=== PATIENT | female | born 1995 | race Caucasian/White ===

== ENCOUNTER 2019-06-09 23:11 | Inpatient (IN) | payer OTHER ==
[~2019-06-09] VITALS: Ht 160 cm; Wt 108.9 kg
[2019-06-09 23:11] VITALS: BP 121/81
--- NOTE | 2019-06-09 23:11 | NUR ---
SANTOS ALS TO ER BED 6
[2019-06-09] MEDS ORDERED: NACL 0.9% 1,000 ML IV ONE (23:20)
--- NOTE | 2019-06-09 23:20 | NUR ---
23 YO F SANTOS FROM HOME FOR OD ATTEMPT/SI. PER EMS, PT FOUND UNCONSCIOUS BY FAMILY MEMBER SURROUNDED BY SEVERAL EMPTY RX BOTTLES AND UNKNOWN ALCOHOL. IT IS UNKNOWN HOW MUCH OR WHAT KIND OF ALCOHOL PT DRANK, BUT EMS ESTIMATED 4 SHOTS WORTH. FAMILY MEMBER TOLD EMS THAT PT HAS HX OF DEPRESSION AND WAS PLACED ON 5150 HOLD X 4 DAYS AGO AFTER TRYING TO SLIT HER WRISTS. RX BOTTLES FOUND WITH PT INCLUDE: TRAZODONE 50 MG, SULFAMETH/TRIMETH 400-80 MG, IBUPROFEN 600MG, VIT. D3 10,000 UNITS, AND HYDROXYZINE PAMOATE 50MG. UNKNOWN AMOUNT INGESTED. PT ARRIVES OBTUNDED, AROUSABLE TO STERNAL RUB. A/O X 0. GCS 10. PT PUSHES AWAY WHEN TRYING TO CHECK PUPILS. PUPILS PERRL @ 5. NO VISIBLE TRAUMA NOTED TO BODY. [facility]-- DEPRESSION, MULTIPLE SUICIDE ATTEMPTS Addendum: 06/10/19 at 0533 by [facility] NAVID RODRIGUEZ PRESENT TO WRITE 5150 HOLD FOR DANGER TO SELF.
--- NOTE | 2019-06-09 23:20 | NUR ---
SI PRECAUTIONS IMPLEMENTED. ROOM PREPARED FOR SI SAFETY.
--- NOTE | 2019-06-09 23:30 | NUR ---
# 16 FR straight catheter utilizing sterile technique. Immediate return of 700 ml clear, yellow urine noted. Urine sample collected and sent to lab. Pt tolerated procedure well.
--- NOTE | 2019-06-09 23:35 | NUR ---
SPOKE WITH ERIN, POISON CONTROL. 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 DR. DIANE INFORMED OF THESE SUGGESTIONS.
--- NOTE | 2019-06-09 23:40 | NUR ---
PT PUSHING AWAY AND SAYING "NO" WHILE EMT TRYING TO PERFORM EKG. PRIMARY NURSE ACCOMPANIED FOR ASSIST.
[2019-06-09 23:48] LABS: BASOPHILS # (AUTO) 0.1 K/uL (0.00-0.22); BASOPHILS % (AUTO) 1.4 % (0.0-2.0); EOSINOPHILS % (AUTO) 0.9 % (0.0-4.0); HEMATOCRIT 41.9 % (36-48); HEMOGLOBIN 13.5 g/dL (12.0-16.0); LYMPHOCYTES # (AUTO) 2.9 K/uL (2.5-16.5); LYMPHOCYTES % (AUTO) 57.4 % (20.5-51.1); MEAN CORPUSCULAR HEMOGLOBIN 30 pg (27-31); MEAN CORPUSCULAR HGB CONC 32 g/dL (33-37); MEAN CORPUSCULAR VOLUME 94.3 fL (80-94); MONOCYTES # (AUTO) 0.5 K/uL (0.8-1.0); MONOCYTES % (AUTO) 10.1 % (1.7-9.3); NEUTROPHILS # (AUTO) 1.5 K/uL (1.8-7.7); NEUTROPHILS % (AUTO) 30.2 % (42.2-75.2); PLATELET COUNT (AUTO) 365 K/uL (140-450); RED BLOOD CELL COUNT(AUTO) 4.44 MIL/uL (4.20-5.40); RED CELL DISTRIBUTION WIDTH 16.9 % (11.6-13.7)
--- NOTE | 2019-06-09 23:51 | NUR ---
EKG PERFORMED AT BEDSIDE WITH PRIMARY RN PRESENT
[2019-06-10 00:02] LABS: ALBUMIN 3.6 g/dL (3.4-5.0); ANION GAP 14.2 (8-16); ASPARTATE AMINOTRANSFERASE 436 U/L (15-37); CARBON DIOXIDE 27.2 mmol/L (21-32); CHLORIDE 108 mmol/L (98-107); CREATININE 0.8 mg/dL (0.6-1.3); GFR ARICAN-AMERICAN 113 mL/min (>90); GLUCOSE 108 mg/dL (74-106); POTASSIUM 3.4 mmol/L (3.5-5.1); SODIUM SERUM 146 mmol/L (136-145); TOTAL BILIRUBIN 0.4 mg/dL (0.0-1.0); UREA NITROGEN, BLOOD 7 mg/dL (7-18)
--- NOTE | 2019-06-10 00:05 | NUR ---
SPO2 DROPPING TO 89%. PT HAS SHALLOW RESPIRATIONS. SKIN PINK, WARM, DRY. PT PLACED ON 4 LPM VIA NC TO MAINTAIN SPO2 >94%. SPO2 100% ON 4 LPM O2.
[2019-06-10 00:09] LABS: SALICYLATE < 2.8 mg/dL (2.8-20.0)
[2019-06-10 00:10] LABS: ACETAMINOPHEN < 0.5 ug/ml (10-30)
--- NOTE | 2019-06-10 00:11 | NUR ---
LAB CALLED FOR CRITICAL: BLOOD ALCOHOL LEVEL IS 573. LUCI DIANE AWARE.
--- NOTE | 2019-06-10 01:16 | NUR ---
RESTING DEEPLY WITH EYES CLOSED. AROUSABLE TO PAINFUL STIMULI. VSS ARE WNL AND STABLE. Addendum: 06/10/19 at 0217 by [facility] SITTER AT BEDSIDE.
[2019-06-10 01:26] LABS: BARBITURATE, URINE NEG. ng/ml (NEG <=200); BENZODIAZEPINE, URINE NEG. ng/mL (NEG <=200); CANNABINOID, URINE NEG. ng/mL (NEG <=50); COCAINE, URINE NEG. ng/mL (NEG <=300); OPIATE, URINE NEG. ng/mL (NEG <=2000); PHENCYCLIDINE SCREEN,URINE NEG. ng/mL (NEG <=25)
[2019-06-10] MEDS ORDERED: ONDANSETRON 4 MG/2 ML VIAL IVP PRN (01:55)
[2019-06-10] MEDS ORDERED: ACETAMINOPHEN 325 MG TAB PO PRN (01:55)
--- NOTE | 2019-06-10 02:14 | NUR ---
RESTING WITH EYES CLOSED. VSS. AROUSABLE TO PAINFUL STIMULI. REMAINS OBTUNDED. A/O X 0. Addendum: 06/10/19 at 0215 by [facility] SITTER SITTING NEARBY.
[2019-06-10 02:35] VITALS: BP 105/66
--- NOTE | 2019-06-10 02:35 | NUR ---
REPORT RECEIVED FROM ED NURSE AT BEDSIDE. PT IN STABLE CONDITION. AAOX0. INTRODUCED SELF TO PT. FLACC 0. NO SOB. AFEBRILE. PT IS AMBULATORY BUT IS ON BEDREST. PT IS 1:1 SITTER 5150 HOLD. IV SITE L AC 18G RUNNING BOLUS OF NS. WILL RUN D5 1/2NS@100ML/HR PATENT AND INTACT. SKIN WARM, DRY, AND INTACT WITH NO OPEN WOUNDS. BED LOCKED IN LOW POSITION. SAFETY PRECAUTION IN PLACE. SEIZURE PRECAUTION IN PLACE. ALL NEEDS MET AT THIS TIME. MRSA SWAB TAKEN.
--- NOTE | 2019-06-10 02:42 | NUR ---
Patient will be admitted to care of Dr. Lopez. Admited to tele. Will go to room 109B. Belongings list completed. Report to ROE Souza.
[2019-06-10] MEDS: DEXT 5% / NACL 0.45% 1,000 ML IV SCH ×3 (03:06→21:55)
[2019-06-10] MEDS ORDERED: MOT200 PO (03:07)
[2019-06-10] MEDS ORDERED: SULF-58 PO (03:07)
[2019-06-10] MEDS ORDERED: HYDR25CA1 PO (03:07)
[2019-06-10] MEDS ORDERED: TRAZ-343 PO (03:07)
[2019-06-10] MEDS ORDERED: CALC-1030 PO (03:07)
--- NOTE | 2019-06-10 04:00 | NUR ---
PT SLEEPING COMFORTABLY BUT AROUSABLE. NO S/S OF DISTRESS NOTED. WILL CONTINUE TO MONITOR.
--- NOTE | 2019-06-10 05:45 | NUR ---
PT SLEEPING COMFORTABLY BUT AROUSABLE. BP DECREASED BUT IN STABLE CONDITION. WILL CONTINUE TO MONITOR.
--- NOTE | 2019-06-10 06:50 | NUR ---
PT SLEEPING COMFORTABLY BUT AROUSABLE. PT BP DECREASED BUT IN STABLE CONDITION.
--- NOTE | 2019-06-10 07:15 | NUR ---
RECEIVED REPORT FROM READERS' ADVISORY SERVICE LIBRARIAN NURSE MIN FOR CONTINUITY OF CARE. PT IN STABLE CONDITION. RESPIRATIONS EVEN AND UNLABORED. IV INTACT AND PATENT. SAFETY MEASURES IN PLACE. BED IN LOW POSITION. BED ALARM ON. CALL LIGHT AT BEDSIDE. WILL CONTINUE TO MONITOR.
[2019-06-10 08:00] VITALS: BP 94/54
--- NOTE | 2019-06-10 09:11 | NUR ---
DC PLANNIN YRS OLD FEMALE PATIENT CAME FROM HOME WITH A DX OF 5151 HOLD FOR SUICIDAL DRUG OVERDOSE. PT HAS A HX OF ANXIETY AND DEPRESSION, PER FAMILY THE FOUND 5 EMPTY BOTTLES OF PILLS CONTAINER . ALCOHOL LEVEL 573 , EKG SHOWED PROLONGED QT INTERVAL TREATED WITH IVF , NEEDS TELE MONITORING, NEURO CHECK. ORDERED PSYCH CONSULT. DC PLANING WHEN MEDICALLY CLEAR AND PSYCH DR EVALUATION . Addendum: 06/10/19 at 1531 by Kady Covarrubias CM CONTACTED [facility] AT [phone], ABLE TO SPEAK TO [facility]. SHE STATED THEY ARE NOT AWARE OF THIS HOLD. CHARGE NURSE MADE AWARE AND INFORM TO FAX 8260 HOLD TO [phone]. Addendum: 06/12/19 at 1156 by Shanae Cruz CM DC PLANNING RECEIVED A CALL FROM DR CONTRERAS STATED PT IS MEDICALLY CLEAR AND TOLD HIM THAT SHE IS FINE AND WANTED TO GO HOME. CONTACTED DR INFANTE PSYCH DR NOTIFIED HIME DR CONTRERAS'S SUGGESTION PER DR INFANTE SHE IS QUITE TROUBLED AND OVERDOSE ON A LOTS OF MEDICINE AND IT WILL BE RISKY DISCHARGE.[facility]ED [facility] [phone] SPOKE WITH MILAGROS SHE WILL FAX INQUIRES TO THE PSYCH FACILITY. CM TO FOLLOW
--- NOTE | 2019-06-10 09:33 | NUR ---
PT SLEEPING AT THIS TIME. RESPIRATIONS EVEN AND UNLABORED. EASILY TO AROUSED. BED IN LOW POSITION. SITTER 1:1 AT BEDSIDE. WILL CONTINUE TO MONITOR.
--- NOTE | 2019-06-10 10:24 | NUR ---
PATIENT HAS BEEN SCREENED AND CATEGORIZED LOW NUTRITION RISK. PATIENT WILL BE SEEN WITHIN 7 DAYS OF ADMISSION. 11/13/[address]
--- NOTE | 2019-06-10 11:12 | NUR ---
YEYO CALLED FROM POISON CONTROL FOR UPDATE ON PT STATUS. ALL QUESTIONS ANSWERED AT THIS TIME.
[2019-06-10 12:00] VITALS: BP 98/56
--- NOTE | 2019-06-10 12:34 | NUR ---
CLAY ORDERED IVF AT THIS TIME. PT AWAKE AND ALERT. BED IN LOW POSITION. SITTER 1:1 AT BEDSIDE. WILL CONTINUE TO MONITOR.
--- NOTE | 2019-06-10 14:15 | NUR ---
CONTACTED DR. INFANTE TO FOLLOW UP WITH THE CONSULT. PER DR. INFANTE, HE WILL COME TO SEE PT TODAY. LEANN ASSIGNED MADE AWARE.
--- NOTE | 2019-06-10 14:45 | NUR ---
PT SLEEPING AT THIS TIME. RESPIRATIONS EVEN AND UNLABORED. EASILY TO AROUSED. BED IN LOW POSITION. SITTER 1:1 AT BEDSIDE. WILL CONTINUE TO MONITOR.
--- NOTE | 2019-06-10 16:00 | NUR ---
PT'S 4413 FORM AND FACE SHEET REFAXED TO [facility] REQUEST[facility] BY CASE MANAGEMENT (FAX#: [phone]). CONFIRMATION ATTACHED TO PT'S CHART.
--- NOTE | 2019-06-10 16:23 | NUR ---
Called the following Facilities; [facility], no beds [facility]er fax for review
--- NOTE | 2019-06-10 16:29 | NUR ---
Awaiting medical clearance before placement for inpatient psych
--- NOTE | 2019-06-10 16:38 | NUR ---
CLOTHING WORKER assessment/discharge plan High Risk DC Screen Yes Name: Abbey Espinoza Home Relationship: mother Pre-Admission Living Arrangements: Lives with Other Other: aunt: Salud Prior ADL Independent Current Home Health Name/Tel: N/A Current DME/02 Name/Tel: N/A Current Hospice Name/Tel: N/A Current Dialysis Name/Tel: N/A Healthcare Decision Maker: Patient Advance Directive No Tentative Discharge Plan Summary: Patient is a 23 year old female admitted for 51/50 drug overdose. I met with patient at bedside. Patient alert and oriented x4. Patient lives at home with her aunt Salud and plans to return home upon discharge. Patient does not recall name of her pcp. She stated pcp's office is located in [facility]. She has had depression and anxiety for 1 year. She has not received counseling/mental health services. She told me she has been taking medication for depression and anxiety (prescribed by psychiatrist). She explained to me it is difficult for her to discuss her hx of mental health. I encouraged her to consider finding a mental health professional who she feels comfortable with. She verbalized understanding. She does not want community resources at this time. She is aware there is a possibility she will be transferred to a hospital with psychiatric unit, if she is not cleared by psychiatrist. She does not have any questions/concerns at this time.Advertising Strategist and/or Physician Surgeon will follow up as needed. Signature: BRIAN Szymanski Date: Jun 10, 2019
--- NOTE | 2019-06-10 16:50 | NUR ---
PT LAYING IN BED QUIETLY. RESPIRATIONS EVEN AND UNLABORED. BED IN LOW POSITION. SITTER 1:1 AT BEDSIDE. WILL CONTINUE TO MONITOR.
[2019-06-10] MEDS: chlordiazePOXIDE 25 MG CAP PO SCH (17:42)
--- NOTE | 2019-06-10 19:01 | NUR ---
GAVE REPORT TO SUPERVISOR COLD ROLLING NURSE DENISE FOR CONTINUITY OF CARE. PT IN STABLE CONDITION.
--- NOTE | 2019-06-10 19:02 | NUR ---
RECD. SITTING IN BED, CONVERSING WITH AUNT. SEEMS A LITTLE NERVOUS. RESPIRATION EVEN AND UNLABORED. IV OF D51/2 NS AT 100 ML/HR INFUSING, LEFT AC G18. WHEN INQUIRED IF SHE HAS THOUGHTS OF HURTING SELF, STATED NONE. PLAN OF CARE FOR THE SHIFT DISCUSSED. NODS HEAD IN UNDERSTANDING. DENIES PAIN 0/10.
--- NOTE | 2019-06-10 19:30 | NUR ---
DINNER MEAL TRAY STILL LEFT UNTOUCHED. REMINDED TO EAT, FOOD CAN BE WARM IF SHE WANTS. STATED I STILL FEEL NAUSEOUS. ICE CHIPS GIVEN.
[2019-06-10 20:00] VITALS: BP 149/90
--- NOTE | 2019-06-10 20:00 | NUR ---
AMBULATED TO TO VOID, HOSPITAL UNDERWEAR GIVEN REQUESTED.
--- NOTE | 2019-06-10 20:00 | NUR ---
Patient's Plan of Care was discussed and reviewed with AIR CREW SUPERVISOR: DENISE FRANCO LVN
--- NOTE | 2019-06-10 20:30 | NUR ---
LAYING BED AWAKE BUT QUIET.
--- NOTE | 2019-06-10 21:00 | NUR ---
OFFERED CROSSWORD PUZZLE AND SOME MAGAZINES TO READ.
--- NOTE | 2019-06-10 21:30 | NUR ---
LAYING IN BED TRYING TO SLEEP, REMINDED TO EAT DINNER, AGREED.
--- NOTE | 2019-06-10 22:00 | NUR ---
NO APPETITE TO EAT, ATE ONLY 10%.
[2019-06-10] MEDS: LORazepam 1 MG TAB PO PRN (22:26)
--- NOTE | 2019-06-10 22:26 | NUR ---
WITH ANXIETY, UNABLE TO SLEEP, MEDICATED WITH ATIVAN 1 MG PO.
--- NOTE | 2019-06-10 23:00 | NUR ---
STILL AWAKE IN BED, LOOKING AT HER CELLPHONE.
--- NOTE | 2019-06-10 23:20 | NUR ---
SLEEPING COMFORTABLY IN BED.
[2019-06-11] VITALS: BP 134/91
[2019-06-11] MEDS: DEXT 5% / NACL 0.45% 1,000 ML IV SCH ×3 (00:32→17:55)
--- NOTE | 2019-06-11 01:23 | NUR ---
SLEEPING SOUNDLY, SNORING IN BED.
--- NOTE | 2019-06-11 02:45 | NUR ---
WOKE UP, AMBULATED TO BR TO VOID. BACK TO BED AFTER VOIDING AND WENT BACK TO SLEEP.
[2019-06-11 04:00] VITALS: BP 129/87
--- NOTE | 2019-06-11 04:00 | NUR ---
RESTING IN BED COMFORTABLY, VS STABLE.
--- NOTE | 2019-06-11 05:40 | NUR ---
WOKE UP, AMBULATED TO THE BR. BACK TO BED AFTER VOIDING.
--- NOTE | 2019-06-11 06:06 | NUR ---
STILL SLEEPING COMFORTABLY IN BED. NEW SITTER MONITORING PATIENT NEAR DOOR.
[2019-06-11 06:20] LABS: BASOPHILS # (AUTO) 0.1 K/uL (0.00-0.22); BASOPHILS % (AUTO) 1.3 % (0.0-2.0); EOSINOPHILS # (AUTO) 0.1 K/uL (0-0.4); EOSINOPHILS % (AUTO) 2.7 % (0.0-4.0); HEMATOCRIT 36.5 % (36-48); HEMOGLOBIN 12.1 g/dL (12.0-16.0); LYMPHOCYTES % (AUTO) 40.7 % (20.5-51.1); MEAN CORPUSCULAR HEMOGLOBIN 31 pg (27-31); MEAN CORPUSCULAR HGB CONC 33 g/dL (33-37); MEAN CORPUSCULAR VOLUME 93.6 fL (80-94); MONOCYTES # (AUTO) 0.5 K/uL (0.8-1.0); MONOCYTES % (AUTO) 10.6 % (1.7-9.3); NEUTROPHILS # (AUTO) 2.1 K/uL (1.8-7.7); NEUTROPHILS % (AUTO) 44.7 % (42.2-75.2); PLATELET COUNT (AUTO) 286 K/uL (140-450); RED CELL DISTRIBUTION WIDTH 16.2 % (11.6-13.7); WHITE BLOOD COUNT (AUTO) 4.8 K/uL (4.8-10.8)
--- NOTE | 2019-06-11 06:30 | NUR ---
CONDITION REMAIN STABLE. SAFETY MAINTAINED DURING SHIFT. 1:1 SITTER NEAR DOOR MONITORING PATIENT.
[2019-06-11 06:37] LABS: MAGNESIUM 1.4 mg/dL (1.8-2.4); PHOSPHORUS 4.1 mg/dL (2.5-4.9)
[2019-06-11 06:40] LABS: ALBUMIN 2.9 g/dL (3.4-5.0); ANION GAP 9.6 (8-16); CARBON DIOXIDE 27.9 mmol/L (21-32); CREATININE 0.6 mg/dL (0.6-1.3); POTASSIUM 3.5 mmol/L (3.5-5.1)
--- NOTE | 2019-06-11 07:25 | NUR ---
RECEIVED BEDSIDE SHIFT REPORT FROM PHYSICS DEPARTMENT CHAIR NURSE FOR CONTINUATION OF CARE. PATIENT REMAINS ON A 5150 HOLD FOR DANGER TO SELF WITH HX OF SUICIDE ATTEMPT. PATIENT REMAINS WITHDRAWN, AND SELECTIVELY MUTE, LAYING IN BED, POOR EYE CONTACT, LOW MOTIVATION. BED IS IN LOW POSITION, CALL LIGHT ON AND WITHIN REACH. WILL CONTINUE TO MONITOR.
[2019-06-11 08:00] VITALS: BP 121/78
[2019-06-11] MEDS: FOLIC ACID 1 MG TAB PO SCH (08:46)
[2019-06-11] MEDS: chlordiazePOXIDE 25 MG CAP PO SCH ×3 (08:47→17:24)
[2019-06-11] MEDS: THIAMINE 100 MG TAB PO SCH (08:47)
--- NOTE | 2019-06-11 09:30 | NUR ---
PATIENT RESTING IN BED, MEDICATIONS FOR ETOH DETOX ADMINISTERED, PATIENT REPORTS NO PAIN AT THIS TIME. 1:1 SITTER IS IN PATIENTS ROOM. WILL CONTINUE TO MONITOR.
--- NOTE | 2019-06-11 11:05 | NUR ---
RIGHT UPPER ARM, OLD HEALED TATTOO, NO OPEN ACTIVE WOUNDS, DRY THIN SCABS, NO ERYTHEMA, NO SWELLING.
--- NOTE | 2019-06-11 12:02 | NUR ---
PATIENT IS RESTING IN BED, 1:1 SITTER IN ROOM MONITORING FOR SAFETY. WILL CONTINUE TO MONITOR.
[2019-06-11] MEDS: HYDROcodone/APAP 5/325 MG 1 TAB TAB PO PRN ×2 (13:15→19:53)
[2019-06-11] MEDS ORDERED: LORA-476 PO (13:57)
[2019-06-11] MEDS ORDERED: MAGNESIUM OXIDE 400 MG TAB PO SCH (14:00)
--- NOTE | 2019-06-11 14:42 | NUR ---
ON 1:1 OBSERVATION FOR 5150 SUICIDE ATTEMPT. MAGNESIUM 1.4 REPORTED TO , ORDERED MAG OXIDE 800 MG PO ONE TIME DOSE. MEDICATION ADMINISTERED. TOLERATED WELL. MILD HAND TREMORS OBSERVED, ABSENT OF SWEATING, MILD ANXIETY REPORTED. PATIENT IS OCCUPYING HERSELF WITH A CROSSWORD PUZZLE. PATIENT VERBALIZES THAT SHE WANTS TO GET HELP FOR HER AND HER SON. DENIES SUICIDAL IDEATION AT THIS TIME. BED IN LOW POSITION, CALL LIGHT ON AND WITHIN REACH.
[2019-06-11 17:00] VITALS: BP 118/85
--- NOTE | 2019-06-11 17:20 | NUR ---
1:1 STATUS REMAINS DUE TO 5150 STATUS, NORCO GIVEN FOR CHEST PAIN. SITTER REMAINS IN THE ROOM. WILL CONTINUE TO MONITOR.
[2019-06-11] MEDS: LORazepam 1 MG TAB PO PRN (18:11)
--- NOTE | 2019-06-11 19:26 | NUR ---
RECEIVED REPORT FROM DAYSHIFT NURSE AISLINN AT BEDSIDE FOR CONTINUITY OF CARE , PT IN STABLE CONDITION.
--- NOTE | 2019-06-11 19:26 | NUR ---
REPORT GIVEN TO GEL COATER NURSE FOR CONTINUATION OF CARE.
[2019-06-11 20:00] VITALS: BP 125/88
--- NOTE | 2019-06-11 20:00 | NUR ---
PT IN BED IV SIT4E 18 GUAGE ON THE LEFT AC, INTACT AND FLUSHED PATENT RUNNING 100MLS OF D51/2 NS AT 100MLS/HR. PT AOX4 WITH SKIN INTACT AND AMBULATORY.PT C/O OF 5/10 PAIN IN CHEST FROM POST IN. PT GIVEN 1 TAB O\F NORCO. 1:1 SITTER AT BEDSIDE AND ALL FALLS PRECAUTIONS IN PLACE.
[2019-06-12] VITALS: BP 126/92
--- NOTE | 2019-06-12 | NUR ---
PT SITTING UP IN BED AWAKE NO S/S OF PAIN OR DISTRESS NOTED. 1:1 SITTER AT BEDSIDE. V/S STABLE AND UNCOMPLICATED.
--- NOTE | 2019-06-12 04:00 | NUR ---
PT IN BED FLUIDS RUNNING ORDERED. NO ADVERSE EFFECTS OF IV ABT NOTED. 1X1 SITTER AT BEDSIDE.
--- NOTE | 2019-06-12 06:30 | NUR ---
PT SITTING UP IN BED NO S/S OF PAIN OR DISTRESS NOTED. PT SKIN INTACT SHE TURNE IN BED HERSELF, 1 1 SITTER AT BEDSIDE.
[2019-06-12] MEDS: DEXT 5% / NACL 0.45% 1,000 ML IV SCH ×2 (06:31→17:00)
[2019-06-12] MEDS: HYDROcodone/APAP 5/325 MG 1 TAB TAB PO PRN ×3 (06:34→18:23)
[2019-06-12 07:03] LABS: BASOPHILS % (AUTO) 0.7 % (0.0-2.0); EOSINOPHILS # (AUTO) 0.1 K/uL (0-0.4); EOSINOPHILS % (AUTO) 2.3 % (0.0-4.0); HEMATOCRIT 39.8 % (36-48); HEMOGLOBIN 12.9 g/dL (12.0-16.0); LYMPHOCYTES # (AUTO) 1.6 K/uL (2.5-16.5); LYMPHOCYTES % (AUTO) 27.9 % (20.5-51.1); MEAN CORPUSCULAR HEMOGLOBIN 30 pg (27-31); MEAN CORPUSCULAR HGB CONC 33 g/dL (33-37); MEAN CORPUSCULAR VOLUME 93.3 fL (80-94); MONOCYTES # (AUTO) 0.5 K/uL (0.8-1.0); MONOCYTES % (AUTO) 8.6 % (1.7-9.3); NEUTROPHILS # (AUTO) 3.5 K/uL (1.8-7.7); NEUTROPHILS % (AUTO) 60.5 % (42.2-75.2); PLATELET COUNT (AUTO) 306 K/uL (140-450); RED BLOOD CELL COUNT(AUTO) 4.26 MIL/uL (4.20-5.40); RED CELL DISTRIBUTION WIDTH 16.7 % (11.6-13.7); WHITE BLOOD COUNT (AUTO) 5.7 K/uL (4.8-10.8)
--- NOTE | 2019-06-12 07:15 | NUR ---
RECEIVED BEDSIDE REPORT FROM NIGHT NURSE, PT IS ASLEEP IN BED, PT IS STABLE, RESPIRATIONS ARE EVEN AND UNLABORED, NO SIGNS OF DISTRESS NOTED, 1:1 SITTER WITH PT, SAFETY MEASURES IN PLACE, WILL CONTINUE TO MONITOR
[2019-06-12 08:00] VITALS: BP 105/78
[2019-06-12 08:09] LABS: POTASSIUM 4.1 mmol/L (3.5-5.1)
[2019-06-12 08:10] LABS: ALBUMIN 3.2 g/dL (3.4-5.0); CARBON DIOXIDE 31.1 mmol/L (21-32); CREATININE 0.6 mg/dL (0.6-1.3); TOTAL BILIRUBIN 0.8 mg/dL (0.0-1.0)
[2019-06-12 08:11] LABS: MAGNESIUM 1.7 mg/dL (1.8-2.4); PHOSPHORUS 4.8 mg/dL (2.5-4.9)
[2019-06-12] MEDS: FOLIC ACID 1 MG TAB PO SCH (09:06)
[2019-06-12] MEDS: chlordiazePOXIDE 25 MG CAP PO SCH ×3 (09:06→18:20)
--- NOTE | 2019-06-12 09:06 | NUR ---
GAVE PT ORDERED MEDICATION, EDUCATION GIVEN, PT VERBALIZED UNDERSTANDING, PT TOLERATED WELL, PT IS STABLE, 1:1 SITTER BY THE ROOM
[2019-06-12] MEDS: THIAMINE 100 MG TAB PO SCH (09:07)
--- NOTE | 2019-06-12 11:00 | NUR ---
PT SITTING QUIETLY IN BED, PT IS STABLE, 1:1 SITTER IN THE ROOM
--- NOTE | 2019-06-12 12:05 | NUR ---
recieved call from sample case porter that pt is medically cleared pt packet has been faxed to [facility], [facility], [facility] and [facility] for review will cont to monitor notes and assist in placement
--- NOTE | 2019-06-12 13:51 | NUR ---
GAVE PT ORDERED MEDICATION, EDUCATION GIVEN, PT VERBALIZED UNDERSTANDING, PT IS STABLE, 1:1 SITTER OUTSIDE THE DOOR,
[2019-06-12 16:00] VITALS: BP 117/76
--- NOTE | 2019-06-12 18:20 | NUR ---
GAVE PT ORDERED MEDICATION, PT EDUCATION GIVEN, PT VOCALIZED UNDERSTANDING TEACHING, PT IS STABLE, 1:! SITTER IN ROOM.
--- NOTE | 2019-06-12 18:23 | NUR ---
GAVE PT PAIN MEDICATION FOR CHEST PAIN OF 6/10, EDUCATION GIVEN, PT TOLERATED WELL, PT IS STABLE
--- NOTE | 2019-06-12 19:14 | NUR ---
GAVE BEDSIDE REPORT TO NIGHT NURSE FOR CONTINUITY OF CARE, PT IS STABLE
--- NOTE | 2019-06-12 19:15 | NUR ---
RECEIVED BEDSIDE REPORT FROM DAY SHIFT NURSE. PATIENT IS AWAKE, ALERT, AND COOPERATIVE. RESPIRATION EVEN UNLABORED ON ROOM AIR. NO DISTRESS NOTED. SKIN IS WARM AND DRY. IV PATENT AND INTACT. ALL SAFETY MEASURES IN PLACE. BED IS AT LOW POSITION. CALL LIGHT WITHIN REACH AND VERBALIZES ITS USE. WILL CONTINUE TO MONITOR.
--- NOTE | 2019-06-12 20:15 | NUR ---
INITIAL ASSESSMENT DONE. VITALS WERE TAKEN. ASK PATIENT IF SHE HAS ANY THOUGHTS OF HARMING HERSELF. SHE SAID NO. SISTER AT BEDSIDE. WILL CONTINUE TO MONITOR.
--- NOTE | 2019-06-12 21:30 | NUR ---
PATIENT WANTS TO GO HOME. TOLD PATIENT DR. INFANTE NEEDS TO RELEASE YOU IN ORDER TO GO HOME. PATIENT VERBALIZE UNDERSTANDING. AWAITING FOR DR. INFANTE
--- NOTE | 2019-06-12 22:54 | NUR ---
DR. INFANTE AT BEDSIDE.
--- NOTE | 2019-06-12 23:06 | NUR ---
PATIENT IS NO LONGER HOLD FOR 5150.
[2019-06-12 23:13] VITALS: BP 125/82
--- NOTE | 2019-06-12 23:35 | NUR ---
PATIENT IS OK TO DISCHARGER PER DR. INFANTE AND DR. CONTRERAS
--- NOTE | 2019-06-13 | NUR ---
EDUCATED PT ON MEDICATION S/SX WHEN TO GO TO ER. EDUCATED ON THE IMPORTANCE TO FOLLOW UP WITH PCP. REMOVED IV.
--- NOTE | 2019-06-13 00:05 | NUR ---
PATIENT LEFT THE FACILITY IN STABLE CONDITION. SIGNED PAPERWORK. PATIENT LEFT WITH BELONGINGS AND HEADING TOWARDS HOME.
== END 2019-06-13 00:05 | disposition home or self-care (01) | DRG 817 ==
LOC: EDSEX 23:11 → MED 23:11 → EDBD 23:11 → MTU 06-10 01:58
PROVIDERS: ADMIT Hospitalist; ATTEND Hospitalist
DX: T43.592A Poisoning by other antipsychotics and neuroleptics, intentional self-harm, initial encounter (principal); E87.0 Hyperosmolality and hypernatremia; R45.851 Suicidal ideations; E87.6 Hypokalemia; F10.20 Alcohol dependence, uncomplicated; Y90.8 Blood alcohol level of 240 mg/100 ml or more; T43.212A Poisoning by selective serotonin and norepinephrine reuptake inhibitors, intentional self-harm, initial encounter; F41.8 Other specified anxiety disorders; Z79.899 Other long term (current) drug therapy; Y92.89 Other specified places as the place of occurrence of the external cause
CPT/HCPCS: 36415; 80053; 80305; 83735; 84100; 84703; 85025; 87081; 93005; 96360; 99285; C1758; G0480; G0482

== ENCOUNTER 2020-10-31 08:46 | Emergency (ER) | payer MEDICAID, OTHER ==
[~2020-10-31] VITALS: Ht 157.5 cm; Wt 63.5 kg
[~2020-10-31 08:46] MED LIST: CALC-1030 PO; HYDR25CA1 PO; LORA-476 PO; MOT200 PO; TRAZ-343 PO
[2020-10-31 08:50] VITALS: BP 122/73
--- NOTE | 2020-10-31 08:56 | NUR ---
Patient ambulated to bed 7. RN evaluating the patient at bedside.
[2020-10-31] MEDS ORDERED: LORazepam 1 MG TAB PO ONE (09:00)
--- NOTE | 2020-10-31 09:01 | NUR ---
Dr. Rivers is evaluating the patient at bedside.
[2020-10-31] MEDS ORDERED: LORazepam 1 MG TAB ONE (09:02)
--- NOTE | 2020-10-31 09:02 | NUR ---
24 y/o F BIB boyfriend with c/c hyperventilation / increased anxiety. Patient A&Ox4, answering assessment questions with 1-2 worded answers, reports anxiety attack that began an hour ago while laying down. Patient denies any recent life stressors. Patient states bilateral numbness/tingling to hands. Pt placed into gown and quality assurance monitor chassis; RR 27 rapid/shallow; SpO2 100% on room air; HR 97. Dr. Rivers and 2 RNs at bedside providing breathing exercises with relief to patient symptoms. Patient observed with bilateral hand spasms during blood pressure cuff reading. Bed locked in lowest position, side rails x 1, call light in reach. PMH: Anxiety Meds/Sx/Allergies: Denies Addendum: 10/31/20 at 0911 by MED Patient denies syncope, LOC, nausea/vomiting, chest pain, SOB, fever, chills.
[2020-10-31] MEDS ORDERED: ATA25 PO (09:05)
--- NOTE | 2020-10-31 09:10 | NUR ---
Boyfriend at bedside.
--- NOTE | 2020-10-31 09:30 | NUR ---
Patient reports she feels a lot better; RR 12 even/regular; SpO2 100% on room air. Boyfriend remains at bedside. Bed locked in lowest position, side rails x 1.
[2020-10-31 09:35] VITALS: BP 130/79
--- NOTE | 2020-10-31 09:35 | NUR ---
Patient discharged with v/s stable. Written and verbal after care instructions given and explained. Patient alert, oriented and verbalized understanding of instructions. Ambulatory with steady gait. All questions addressed prior to discharge. ID band removed. Patient advised to follow up with PMD. Rx of Atarax Hcl given. Patient educated on indication of medication including possible reaction and side effects. Opportunity to ask questions provided and answered.
== END 2020-10-31 09:35 | disposition home or self-care (01) ==
LOC: MED 08:46
DX: F41.9 Anxiety disorder, unspecified (principal); Z79.899 Other long term (current) drug therapy
CPT/HCPCS: 99283

== ENCOUNTER 2021-01-30 09:02 | Emergency (ER) | payer OTHER ==
[~2021-01-30] VITALS: Ht 160 cm; Wt 63.5 kg
[~2021-01-30 09:02] MED LIST changes: +ATA25 PO
[2021-01-30 09:07] VITALS: BP 127/76
--- NOTE | 2021-01-30 09:23 | NUR ---
25/F SANTOS, PER EMS PATIENT WAS FOUND LAYING ON THE SIDE OF THE STREET BY BYSTANDERS. WHEN EMS ARRIVED THEY SAID PATIENT WAS UNABLE TO STAND ON HER OWN, STATING SHE HAD "3 SHOTS OF WHISKEY" AND SOMEONE GAVE HER UNKNOWN "DROPS ON HER TONGUE." PATIENT APPEARS ALTERED AND LETHARGIC, ABLE TO ANSWER SOME QUESTIONS BUT STATES SHE IS CONFUSED ABOUT WHAT IS HAPPENING AND WHERE SHE IS. PATIENT STATING SHE IS IN PAIN BUT UNABLE TO SPECIFY WHERE, PATIENT PLACED IN GOWN ON BEDSIDE HIGH RAW SUGAR BOILER.
--- NOTE | 2021-01-30 09:52 | NUR ---
Patient being evaluated by physician at bedside.
[2021-01-30] MEDS ORDERED: NACL 0.9% 1,000 ML IV ONE (10:00)
--- NOTE | 2021-01-30 10:20 | NUR ---
CHRISTINE SWAB COLLECTED AND HANDED TO MENTAL HYGIENE CONSULTANT.
[2021-01-30 10:46] LABS: BASOPHILS # (AUTO) 0.1 K/uL (0.00-0.22); EOSINOPHILS # (AUTO) 0.1 K/uL (0-0.4); EOSINOPHILS % (AUTO) 0.7 % (0.0-4.0); HEMATOCRIT 35.6 % (36-48); LYMPHOCYTES # (AUTO) 1.8 K/uL (2.5-16.5); LYMPHOCYTES % (AUTO) 16.7 % (20.5-51.1); MEAN CORPUSCULAR HEMOGLOBIN 33 pg (27-31); MEAN CORPUSCULAR HGB CONC 34 g/dL (33-37); MEAN CORPUSCULAR VOLUME 97.7 fL (80-94); MONOCYTES # (AUTO) 0.3 K/uL (0.8-1.0); MONOCYTES % (AUTO) 3.2 % (1.7-9.3); NEUTROPHILS # (AUTO) 8.4 K/uL (1.8-7.7); NEUTROPHILS % (AUTO) 78.4 % (42.2-75.2); PLATELET COUNT (AUTO) 386 K/uL (140-450); RED BLOOD CELL COUNT(AUTO) 3.65 MIL/uL (4.20-5.40); WHITE BLOOD COUNT (AUTO) 10.7 K/uL (4.8-10.8)
--- NOTE | 2021-01-30 10:50 | NUR ---
PATIENT W/C ASSISTED TO RESTROOM TO PROVIDE URINE SAMPLE.
[2021-01-30 10:59] LABS: ALBUMIN 3.4 g/dL (3.4-5.0); ANION GAP 15.4 (8-16); CARBON DIOXIDE 25.9 mmol/L (21-32); CREATININE 0.6 mg/dL (0.6-1.3); POTASSIUM 3.3 mmol/L (3.5-5.1); TOTAL BILIRUBIN 0.9 mg/dL (0.0-1.0)
[2021-01-30] MEDS ORDERED: HALOPERIDOL IM 5 MG/ML VIAL IM ONE (11:40)
[2021-01-30] MEDS ORDERED: HALOPERIDOL IM 5 MG/ML VIAL ONE (11:41)
--- NOTE | 2021-01-30 11:47 | NUR ---
PATIENT UP FROM BED, RIPPED OFF MONITOR LEADS, ATTEMPTING TO LEAVE ER WITH IV IN ARM. PATIENT REORIENTED AND PUT BACK IN BED. PLACED BACK ON MONITOR.
--- NOTE | 2021-01-30 12:30 | NUR ---
PATIENT LAYING IN BED, EYES CLOSED. RESPIRATIONS EVEN AND UNLABORED. ON BEDSIDE DOPE SPRAYER, VSS, WILL CONTINUE TO MONITOR.
[2021-01-30 13:09] LABS: BARBITURATE, URINE NEGATIVE ng/ml (NEG <=200); BENZODIAZEPINE, URINE NEGATIVE ng/mL (NEG <=200); CANNABINOID, URINE POSITIVE ng/mL (NEG <=50); COCAINE, URINE NEGATIVE ng/mL (NEG <=300)
[2021-01-30 13:10] LABS: OPIATE, URINE NEGATIVE ng/mL (NEG <=2000); PHENCYCLIDINE SCREEN,URINE NEGATIVE ng/mL (NEG <=25)
--- NOTE | 2021-01-30 14:00 | NUR ---
PATIENT LAYING IN BED, EYES CLOSED. RESPIRATIONS EVEN AND UNLABORED. ON BEDSIDE BI TECHNICAL LEAD, VSS, WILL CONTINUE TO MONITOR.
[2021-01-30 15:38] VITALS: BP 100/61
--- NOTE | 2021-01-30 15:39 | NUR ---
Patient discharged with v/s stable. Written and verbal after care instructions given and explained ABOUT ALCOHOL USE DISORDER AND ALCOHOL INTOXICATION. Patient verbalized understanding. Ambulatory with steady gait. All questions addressed prior to discharge. Advised to follow up with PMD. PATIENTS FATHER PICKED HER UP.
== END 2021-01-30 15:38 | disposition home or self-care (01) ==
LOC: MED 09:02
DX: F10.129 Alcohol abuse with intoxication, unspecified (principal); D64.9 Anemia, unspecified; Z20.822 Contact with and (suspected) exposure to COVID-19; F41.9 Anxiety disorder, unspecified; Z79.899 Other long term (current) drug therapy; Z79.1 Long term (current) use of non-steroidal anti-inflammatories (NSAID)
CPT/HCPCS: 36415; 80053; 80305; 83690; 85025; 87426; 93005; 96360; 96372; 99285; G0482; J1630; J7030; 96361

== ENCOUNTER 2022-03-10 17:43 | Emergency (ER) | payer OTHER ==
[~2022-03-10] VITALS: Ht 162.6 cm; Wt 63.5 kg
[2022-03-10 17:45] VITALS: BP 111/88
[2022-03-10] MEDS ORDERED: LORazepam 2 MG/ML VIAL IVP ONE (18:10)
[2022-03-10] MEDS ORDERED: NALOXONE PFS 2 MG/2 ML SYR IVP ONE (18:10)
[2022-03-10] MEDS ORDERED: ONDANSETRON 4 MG/2 ML VIAL IVP ONE (18:10)
--- NOTE | 2022-03-10 18:31 | NUR ---
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 PT TACHYPNEIC, TACHYCARDIC APPEARS ANXIOUS. IV NOTED TO LEFT AC #20GUAGE. MEDICATED PER ORDER.
--- NOTE | 2022-03-10 19:07 | NUR ---
Patient discharged with v/s stable. Written and verbal after care instructions N/V, Generalized andxiety disorder given and explained. Patient verbalized understanding. Ambulatory with steady gait. All questions addressed prior to discharge. Advised to follow up with PMD.
== END 2022-03-10 19:07 | disposition home or self-care (01) ==
LOC: MED 17:43
DX: F41.9 Anxiety disorder, unspecified (principal); I10 Essential (primary) hypertension; F11.90 Opioid use, unspecified, uncomplicated; Z79.899 Other long term (current) drug therapy
CPT/HCPCS: 96374; 96375; 99284; J2060; J2310; J2405